=== PATIENT | male | born 1940 | race American Indian/Alaskan Native ===

== ENCOUNTER 2021-08-20 07:32 | Emergency (ER) | payer MEDICARE, OTHER ==
[2021-08-20 09:04] VITALS: BP 159/76
[2021-08-20 09:23] LABS: Bilirubin,Urine NEG (Negative); Blood,Urine SM (Negative); Color,Urine Straw (Yellow); Mucus,Urine FEW /HPF; Protein,Urine <15 mg/dL mg/dL (Negative); Urobilinogen,Urine < 2.0 mg/dL (<2.0)
--- NOTE | 2021-08-20 09:38 | Emergency Department Report ---
ED Male HPI - General Chief complaint: Urogenital-Male Stated complaint: UNABLE TO URINATE Time Seen by Provider: 08/20/21 08:00 Source: EMS Mode of arrival: Stretcher Limitations: Altered Mental Status - History of Present Illness Initial comments: pt has urinary retention started this am, tried to urinate approx 0630 unable to urinate tried two different times unsuccessful MD Complaint: other (retention) -: Gradual, hour(s) - Related Data Allergies Allergy/AdvReac Type Severity Reaction Status Date / Time No Known Allergies Allergy Unverified 08/20/21 07:51 ED Review of Systems ROS: Stated complaint: UNABLE TO URINATE Other details as noted in HPI Constitutional: denies: chills, fever Eyes: denies: eye pain, eye discharge, vision change ENT: denies: ear pain, throat pain Respiratory: denies: cough, shortness of breath, wheezing Cardiovascular: denies: chest pain, palpitations Endocrine: no symptoms reported Gastrointestinal: denies: abdominal pain, nausea, diarrhea Genitourinary: denies: urgency, dysuria Musculoskeletal: denies: back pain, joint swelling, arthralgia Skin: denies: rash, lesions Neurological: denies: headache, weakness, paresthesias Psychiatric: denies: anxiety, depression Hematological/Lymphatic: denies: easy bleeding, easy bruising ED Past Medical Hx - Past Medical History Previous Medical History?: Yes Hx Hypertension: Yes Hx Dementia: Yes - Social History Smoking Status: Never Smoker ED Physical Exam - General Limitations: Altered Mental Status General appearance: alert, in no apparent distress - Head Head exam: Present: atraumatic, normocephalic - Eye Eye exam: Present: normal appearance - ENT ENT exam: Present: mucous membranes moist - Neck Neck exam: Present: normal inspection - Respiratory Respiratory exam: Present: normal lung sounds bilaterally. Absent: respiratory distress - Cardiovascular Cardiovascular Exam: Present: regular rate, normal rhythm. Absent: systolic murmur, diastolic murmur, rubs, gallop - GI/Abdominal GI/Abdominal exam: Present: soft, normal bowel sounds - Rectal Rectal exam: Present: deferred - Extremities Exam Extremities exam: Present: normal inspection - Back Exam Back exam: Present: normal inspection - Neurological Exam Neurological exam: Present: alert, oriented X3 - Psychiatric Psychiatric exam: Present: normal affect, normal mood - Skin Skin exam: Present: warm, dry, intact, normal color. Absent: rash ED Course Vital Signs 08/20/21 08/20/21 08/20/21 07:45 08:54 09:00 Temperature Pulse Rate 101 H Respiratory 18 14 Rate Blood Pressure 203/105 Blood Pressure [Left] O2 Sat by Pulse 98 94 94 Oximetry 08/20/21 09:03 Temperature 98.4 F Pulse Rate 78 Respiratory 15 Rate Blood Pressure Blood Pressure 159/76 [Left] O2 Sat by Pulse 95 Oximetry ED Medical Decision Making - Medical Decision Making fley cath in 900 cc out Critical care attestation.: If time is entered above; I have spent that time in minutes in the direct care of this critically ill patient, excluding procedure time. ED Disposition Clinical Impression: Urinary retention Disposition: 01 HOME / SELF CARE / HOMELESS Is pt being admited?: No Does the pt Need Aspirin: No Condition: Stable Instructions: Acute Urinary Retention, Male, [id number] Referrals: PRIMARY CARE, [Primary Care Provider] - 3-5 Days
== END 2021-08-20 10:30 | disposition home or self-care (01) ==
LOC: ED 07:32
DX: R33.9 Retention of urine, unspecified (principal); I10 Essential (primary) hypertension; F03.90 Unspecified dementia, unspecified severity, without behavioral disturbance, psychotic disturbance, mood disturbance, and anxiety
CPT/HCPCS: 51702; 81001; 99283

== ENCOUNTER 2021-08-22 08:29 | Emergency (ER) | payer MEDICARE ==
[2021-08-22 09:15] VITALS: BP 189/92
--- NOTE | 2021-08-22 13:36 | Emergency Department Report ---
ED Male HPI - General Chief complaint: Urogenital-Male Stated complaint: CATHETER REMOVAL Time Seen by Provider: 08/22/21 13:17 Source: patient Mode of arrival: Ambulatory Limitations: No Limitations - History of Present Illness Initial comments: 80-year-old black male presents to the emergency department for evaluation of leaking to Ritter catheter. Patient states that Ritter catheter was placed 2 days ago for urinary retention, but it has since started to drain from the wrong area. He states that he has not had any abdominal pain or fever but he had to fix the catheter up so they would not leak. He is requesting a catheter just be removed. Complaint: other (Ritter catheter leaking) -: Gradual, days(s) (1) Severity scale (0 -10): 0 denies: discharge, swelling, mass, rash, urinary retention, blood in urine, dysuria, fever, incontinence - Related Data Allergies Allergy/AdvReac Type Severity Reaction Status Date / Time No Known Allergies Allergy Unverified 08/20/21 07:51 ED Review of Systems ROS: Stated complaint: CATHETER REMOVAL Other details as noted in HPI Comment: All other systems reviewed and negative Constitutional: denies: chills, fever Respiratory: denies: shortness of breath, SOB with exertion, SOB at rest Cardiovascular: denies: chest pain, palpitations, dyspnea on exertion Gastrointestinal: denies: abdominal pain, nausea, vomiting Genitourinary: denies: urgency, dysuria, frequency, hematuria, discharge, testicular pain, testicular mass Musculoskeletal: denies: back pain Neurological: denies: headache, weakness ED Past Medical Hx - Past Medical History Hx Hypertension: Yes Hx Dementia: Yes Additional medical history: urinary retention - Surgical History Past Surgical History?: No - Social History Smoking Status: Current Every Day Smoker ED Physical Exam - General Limitations: No Limitations General appearance: alert, in no apparent distress - Head Head exam: Present: atraumatic, normocephalic - Eye Eye exam: Present: normal appearance. Absent: conjunctival injection - Neck Neck exam: Present: normal inspection - Respiratory Respiratory exam: Absent: respiratory distress - Cardiovascular Cardiovascular Exam: Present: regular rate - GI/Abdominal GI/Abdominal exam: Present: soft. Absent: distended, tenderness, guarding, rebound, rigid - exam: Absent: normal inspection (Ritter catheter in place, Ritter noted to have tube and placed to balloon side of catheter instead of being connected to drainage hold for the urine.) - Extremities Exam Extremities exam: Present: normal inspection - Back Exam Back exam: Present: normal inspection. Absent: CVA tenderness (R), CVA tenderness (L) - Neurological Exam Neurological exam: Present: alert, oriented X3 - Psychiatric Psychiatric exam: Present: normal affect, normal mood - Skin Skin exam: Present: warm, dry, intact, normal color ED Course Vital Signs 08/22/21 09:12 Temperature 98.9 F Pulse Rate 85 Respiratory 14 Rate Blood Pressure 189/92 O2 Sat by Pulse 95 Oximetry ED Medical Decision Making - Medical Decision Making 80-year-old black male presents to the emergency department for evaluation of leaking to Ritter catheter. Patient states that Ritter catheter was placed 2 days ago for urinary retention, but it has since started to drain from the wrong area. He states that he has not had any abdominal pain or fever but he had to fix the catheter up so they would not leak. He is requesting a catheter just be removed. Patient was advised that Ritter was leaking because he had a connected and normal area, and he should leave Ritter in place until he is evaluated by urologist, but patient refused stating that he would rather the catheter to come out and he will return if he is unable to urinate. Ritter catheter removed per patient's request after balloon fully deflated. Patient tolerated well. He was advised to return to the emergency department for urinary retention. Patient went into restroom to urinate and stated that he did not have to go at the time but he would walk around to see if he was able to urinate before he leaves, but patient was noted leaving department. Critical care attestation.: If time is entered above; I have spent that time in minutes in the direct care of this critically ill patient, excluding procedure time. ED Disposition Clinical Impression: Ritter catheter problem Qualifiers: Encounter type: initial encounter Qualified Code(s): T83.9XXA - Unspecified complication of genitourinary prosthetic device, implant and graft, initial encounter Disposition: HOME / SELF CARE / HOMELESS Is pt being admited?: No Does the pt Need Aspirin: No Condition: Stable Instructions: Acute Urinary Retention, Male, [id number] Additional Instructions: Return to the emergency department if you are unable to urinate. Follow-up with urology for further evaluation and management. Referrals: OUSMANE LEIJA MD [Staff Physician] - 3-5 Days Time of Disposition: 13:36
== END 2021-08-22 14:16 | disposition home or self-care (01) ==
LOC: ED 08:29
DX: T83.038A Leakage of other urinary catheter, initial encounter (principal); I10 Essential (primary) hypertension; F03.90 Unspecified dementia, unspecified severity, without behavioral disturbance, psychotic disturbance, mood disturbance, and anxiety; F17.290 Nicotine dependence, other tobacco product, uncomplicated; Y84.9 Medical procedure, unspecified as the cause of abnormal reaction of the patient, or of later complication, without mention of misadventure at the time of the procedure; Y92.89 Other specified places as the place of occurrence of the external cause
CPT/HCPCS: 99281

== ENCOUNTER 2021-08-22 21:29 | Emergency (ER) | payer MEDICARE ==
[2021-08-22 22:12] VITALS: BP 237/115
--- NOTE | 2021-08-23 05:04 | Emergency Department Report ---
ED Male HPI - General Chief complaint: Urogenital-Male Stated complaint: GASTELUM ISSUES Time Seen by Provider: 08/23/21 04:59 Source: patient Mode of arrival: Ambulatory Limitations: No Limitations - History of Present Illness Initial comments: Patient is 80 years old male with history of urinary retention. Patient was seen here yesterday demanding that his Gastelum catheter to be removed. Patient catheter was removed yesterday and patient returned back to the ER stating that he is unable to urinate. Patient denies any fever or chills. No other sy mptoms. Complaint: other - Related Data Allergies Allergy/AdvReac Type Severity Reaction Status Date / Time No Known Allergies Allergy Unverified 08/20/21 07:51 ED Review of Systems ROS: Stated complaint: GASTELUM ISSUES Other details as noted in HPI Comment: All other systems reviewed and negative Constitutional: denies: chills, fever Respiratory: denies: cough, shortness of breath, SOB with exertion Cardiovascular: denies: chest pain, palpitations Gastrointestinal: denies: abdominal pain, nausea, vomiting, diarrhea, constipation, hematemesis, melena, hematochezia Genitourinary: dysuria Musculoskeletal: denies: back pain ED Past Medical Hx - Past Medical History Hx Hypertension: Yes Hx Dementia: Yes Additional medical history: urinary retention - Social History Smoking Status: Current Every Day Smoker ED Physical Exam - General Limitations: No Limitations General appearance: alert, in no apparent distress - Head Head exam: Present: atraumatic, normocephalic, normal inspection - Eye Eye exam: Present: normal appearance - ENT ENT exam: Present: normal exam, normal orophraynx, mucous membranes moist - Neck Neck exam: Present: normal inspection, full ROM. Absent: tenderness, meningismus - Respiratory Respiratory exam: Present: normal lung sounds bilaterally - Cardiovascular Cardiovascular Exam: Present: regular rate, normal rhythm, normal heart sounds - GI/Abdominal GI/Abdominal exam: Present: soft, normal bowel sounds. Absent: distended, tenderness, guarding, rebound, rigid, bruit, pulsatile mass, hernia - Extremities Exam Extremities exam: Present: normal inspection, full ROM, normal capillary refill. Absent: tenderness, pedal edema, joint swelling, calf tenderness - Back Exam Back exam: Present: normal inspection, full ROM. Absent: CVA tenderness (R), CVA tenderness (L) - Neurological Exam Neurological exam: Present: alert, oriented X3, CN II-XII intact - Psychiatric Psychiatric exam: Present: normal mood - Skin Skin exam: Present: warm, intact, normal color ED Course Vital Signs 08/22/21 21:41 Temperature 98.0 F Pulse Rate 105 H Respiratory 18 Rate Blood Pressure 237/115 O2 Sat by Pulse 96 Oximetry ED Medical Decision Making - Medical Decision Making Patient is 80 years old male with history of urinary retention. Patient was seen here yesterday demanding that his Gastelum catheter to be removed. Patient catheter was removed yesterday and patient returned back to the ER stating that he is unable to urinate. Patient denies any fever or chills. No other symptoms. Gastelum catheter placed with immediate relief of patient's symptoms. Patient strongly advised to follow-up with urologist in the next 2 to 3 days and to return to the ER if he develop any new symptoms. Critical care attestation.: If time is entered above; I have spent that time in minutes in the direct care of this critically ill patient, excluding procedure time. ED Disposition Clinical Impression: Acute on chronic retention of urine Disposition: 01 HOME / SELF CARE / HOMELESS Is pt being admited?: No Condition: Stable Instructions: Acute Urinary Retention, Male, Indwelling Urinary Catheter Care, Adult Referrals: CRISTOFER SERRA MD [Staff Physician] - 3-5 Days
== END 2021-08-23 06:09 | disposition home or self-care (01) ==
LOC: ED 21:29
DX: R33.9 Retention of urine, unspecified (principal); I10 Essential (primary) hypertension; F03.90 Unspecified dementia, unspecified severity, without behavioral disturbance, psychotic disturbance, mood disturbance, and anxiety; F17.200 Nicotine dependence, unspecified, uncomplicated
CPT/HCPCS: 99282